=== PATIENT | male | born 1980 | race Caucasian/White ===

== ENCOUNTER 2016-11-03 19:29 | Emergency (ER) | payer OTHER ==
[~2016-11-03] VITALS: Ht 170.2 cm; Wt 8.4 kg
[~2016-11-03 19:29] MED LIST: ALBU6.7H INH; LAMI25TA3 PO; XANA2TAB PO; ZITH250T PO
[2016-11-03 19:56] VITALS: BP 136/92; PULSE 70; RESP 20; TEMP 98.4; O2SAT 98
[2016-11-03] MEDS ORDERED: FLUO20CA4 PO (20:13)
[2016-11-03] MEDS ORDERED: ALPR2TAB3 PO (20:13)
[2016-11-03] MEDS ORDERED: IBUP800T23 PO (20:42)
[2016-11-03] MEDS ORDERED: CYCL1TAB29 PO (20:42)
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
== END 2016-11-03 21:02 | disposition home or self-care (01) ==
LOC: PHED 19:29 → PHEFT 21:02
DX: S16.1XXA Strain of muscle, fascia and tendon at neck level, initial encounter (principal); M62.838 Other muscle spasm; V43.52XA Car driver injured in collision with other type car in traffic accident, initial encounter
CPT/HCPCS: 99283

== ENCOUNTER 2016-12-25 11:33 | Emergency (ER) | payer OTHER ==
[~2016-12-25] VITALS: Ht 170.2 cm; Wt 83.0 kg
[~2016-12-25 11:33] MED LIST changes: -ALBU6.7H INH; +ALPR2TAB3 PO; +CYCL1TAB29 PO; +FLUO20CA4 PO; +IBUP800T23 PO; -LAMI25TA3 PO; -XANA2TAB PO; -ZITH250T PO
[2016-12-25 11:37] VITALS: BP 115/88; PULSE 88; RESP 16; TEMP 99.6; O2SAT 96
[2016-12-25 14:40] VITALS: BP 119/83; PULSE 79; RESP 16
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
[2016-12-25] MEDS ORDERED: ONDANSETRON HCL 4 MG/2 ML VIAL IV PUSH ONE (14:45)
[2016-12-25] MEDS ORDERED: DEXAMETHASONE SOD PHOS 4 MG/ML VIAL IV PUSH ONE (14:45)
[2016-12-25] MEDS ORDERED: MORPHINE SULFATE 4 MG/ML INJ IV PUSH ONE (14:45)
[2016-12-25 15:21] LABS: AUTOMATED NEUTROPHIL # 8.2 TH/MM3 (1.8-7.7); BASOPHIL % 0.2 % (0.0-2.0); EOSINOPHIL % 0.2 % (0.0-4.0); HEMATOCRIT 47.5 % (39.0-51.0); HEMO FLAGS DIFF FINAL; LYMPH % 15.7 % (9.0-44.0); LYMPHOCYTE # 1.7 TH/MM3 (1.0-4.8); MEAN CELL VOLUME 84.4 FL (80.0-100.0); MEAN CORPUSCULAR HEMOGLOBIN 28.7 PG (27.0-34.0); MONO % 5.8 % (0.0-8.0); NEUT % 78.1 % (16.0-70.0); PLATELET COUNT 198 TH/MM3 (150-450); RED BLOOD COUNT 5.62 MIL/MM3 (4.50-5.90); RED CELL DISTRIBUTION WIDTH 12.4 % (11.6-17.2); WHITE BLOOD COUNT 10.5 TH/MM3 (4.0-11.0)
[2016-12-25 15:50] LABS: BICARBONATE 29.4 MEQ/L (21.0-32.0); POTASSIUM 3.9 MEQ/L (3.5-5.1)
[2016-12-25] MEDS ORDERED: CELE200C PO (16:18)
[2016-12-25] MEDS ORDERED: PROZ20CA11 PO (16:18)
[2016-12-25] MEDS ORDERED: XANA1TAB2 PO (16:18)
[2016-12-25] MEDS ORDERED: TRAM150C6 PO (16:18)
[2016-12-25] MEDS ORDERED: TIZA4TAB PO (16:18)
[2016-12-25 16:30] VITALS: BP 110/70; PULSE 80; RESP 16
[2016-12-25] MEDS ORDERED: GADODIAMIDE PF 287 MG/ML 20 ML VIAL (for RAD MRI) IV ONE (16:43)
--- NOTE | 2016-12-25 16:59 | PD ---
Physical Exam Narrative Received sign out from previous team to follow up MRI LS and reevaluate. 36yo M with right lower back pain for 2 weeks s/p lifting heavy material at work. Pt describes it as a localized pain that is worst with movement. Pain seems very musculoskeletal. However, pt does complain of urinary hesitancy for a few days. Labs reviewed, no leukocytosis. Creatinine normal. Pt was given morphine, zofran and dexamethasone by previous team. MRI LS showed minimal central disc protrusion and an annular tear at L5-S1 level. Significant stenosis is not seen. Neural foramina are patent bilaterally. Informed pt of results and return precautions given. Data Data Last Documented VS Vital Signs Date Time Temp Pulse Resp B/P Pulse Ox O2 Delivery O2 Flow Rate FiO2 12/25/16 16:35 16 12/25/16 14:40 85 12/25/16 11:37 99.6 115/88 96 Orders Complete Blood Count With Diff (12/25/16 14:32) Basic Metabolic Panel (Bmp) (12/25/16 14:32) Mri L Spine W&W/O Contrast (12/25/16 ) Morphine Inj (Morphine Inj) (12/25/16 14:45) Ondansetron Inj (Zofran Inj) (12/25/16 14:45) Dexamethasone Inj (Decadron Inj) (12/25/16 14:45) Bladder Scan PRN (12/25/16 14:36) Gadodiamide Pf Inj (Omniscan Pf Inj) (12/25/16 16:43) Labs Laboratory Tests Test 12/25/16 14:50 White Blood Count 10.5 TH/MM3 Red Blood Count 5.62 MIL/MM3 Hemoglobin 16.1 GM/DL Hematocrit 47.5 % Mean Corpuscular Volume 84.4 FL Mean Corpuscular Hemoglobin 28.7 PG Mean Corpuscular Hemoglobin 34.0 % Concent Red Cell Distribution Width 12.4 % Platelet Count 198 TH/MM3 Mean Platelet Volume 9.3 FL Neutrophils (%) (Auto) 78.1 % Lymphocytes (%) (Auto) 15.7 % Monocytes (%) (Auto) 5.8 % Eosinophils (%) (Auto) 0.2 % Basophils (%) (Auto) 0.2 % Neutrophils # (Auto) 8.2 TH/MM3 Lymphocytes # (Auto) 1.7 TH/MM3 Monocytes # (Auto) 0.6 TH/MM3 Eosinophils # (Auto) 0.0 TH/MM3 Basophils # (Auto) 0.0 TH/MM3 CBC Comment DIFF FINAL Differential Comment Sodium Level 140 MEQ/L Potassium Level 3.9 MEQ/L Chloride Level 103 MEQ/L Carbon Dioxide Level 29.4 MEQ/L Anion Gap 8 MEQ/L Blood Urea Nitrogen 21 MG/DL Creatinine 1.10 MG/DL Estimat Glomerular Filtration 75 ML/MIN Rate Random Glucose 92 MG/DL Calcium Level 8.5 MG/DL MDM Supervised Visit with ANUM: No Diagnosis Primary Impression: Back pain Qualified Code: M54.5 - Chronic right-sided low back pain without sciatica Patient Instructions: General Instructions Departure Forms: Tests/Procedures Additional Instruction: Please follow up with your PMD in 1-2 days. Return to the ED if symptoms worsen. Med/Other Pt SpecificInfo: Prescription(s) given Scripts Ibuprofen 600 Mg [id number] Mg PO Q8HR PRN (PAIN) #20 TAB Ref 0 Prov:Rose Mccabe DO 12/25/16 Disposition: 01 DISCHARGE HOME Condition: Stable Rose Mccabe DO Dec 25, 2016 16:59
--- NOTE | 2016-12-25 17:02 | RADHPO ---
EXAM DATE/TIME: 12/25/2016 15:54 [facility] COMPARISON: No previous studies available for comparison. INDICATIONS : HNP. Incontinence. CONTRAST: 16 cc Omniscan (gadodiamide) IV MEDICAL HISTORY : None. SURGICAL HISTORY : Umbilical hernia repair. Inguinal hernia repair. ENCOUNTER: Initial ACUITY: 3 day PAIN SCORE: 4/10 LOCATION: back TECHNIQUE: Multiplanar multisequence MRI of the lumbar spine was performed with and without contrast. FINDINGS: The most caudal appearing lumbar vertebra is numbered as L5. VERTEBRAE: Homogeneous signal. Normal alignment. CONUS: Normal level and configuration. POST CONTRAST: No abnormal areas of contrast enhancement are seen. T12-L1: The thecal sac has a normal diameter. No evidence of disc bulge or protrusion. The neural foramina are patent bilaterally. L1-L2: The thecal sac has a normal diameter. No evidence of disc bulge or protrusion. The neural foramina are patent bilaterally. L2-L3: The thecal sac has a normal diameter. No evidence of disc bulge or protrusion. The neural foramina are patent bilaterally. L3-L4: The thecal sac has a normal diameter. No evidence of disc bulge or protrusion. The neural foramina are patent bilaterally. L4-L5: The thecal sac has a normal diameter. No evidence of disc bulge or protrusion. The neural foramina are patent bilaterally. L5-S1: There is decreased signal at the disc. There is a minimal central disc protrusion seen on the sagitta l images without stenosis. This is associated with focal bright signal consistent with an annular tea r. Significant stenosis is not seen. The neural foramina are patent bilaterally. CONCLUSION: Minimal central disc protrusion an annular tear at the L5-S1 level. Alexandru Jackson MD on December 25, 2016 at 16:58 Board Certified Radiologist. This report was verified electronically.
[2016-12-25 17:25] VITALS: BP 109/75; PULSE 76; RESP 16; O2SAT 97
[2016-12-25] MEDS ORDERED: IBUP-232 PO (17:46)
[2016-12-25] MEDS ORDERED: DIAZEPAM 5 MG TAB PO ONE (18:00)
== END 2016-12-25 18:24 | disposition home or self-care (01) ==
LOC: PHED 11:33
DX: M54.5 Low back pain (principal); G89.29 Other chronic pain; X50.0XXA Overexertion from strenuous movement or load, initial encounter; T14.90 Injury, unspecified; Y99.0 Civilian activity done for income or pay; Z87.828 Personal history of other (healed) physical injury and trauma
CPT/HCPCS: 72158; 80048; 85025; 96374; 96375; 99284; A9579; J1100; J2270; J2405